=== PATIENT | male | born 1935 | race African-American/Black ===

== ENCOUNTER 2017-02-22 18:00 | Emergency (ER) | payer MEDICARE, OTHER ==
[~2017-02-22] VITALS: Ht 172.7 cm; Wt 85.0 kg
[2017-02-22 18:14] VITALS: BP 96/51; PULSE 74; RESP 18; TEMP 98.4; O2SAT 97; O2SAT 99
[2017-02-22] MEDS ORDERED: SODIUM CHLORIDE 0.9% FLUSH 10 ML FLUSH IVF PRN (18:15)
--- NOTE | 2017-02-22 18:24 | PD ---
HPI . Blurred vision Chief Complaint: Cardiac Complaint Time Seen by Provider: 18:08 Travel History International Travel<30 days: No Contact w/Intl Traveler<30days: No History of Present Illness HPI This patient presents to us via [facility] with the chief complaint to me of blurred vision. The patient was attending a [employer] game. He states that his see his seat was very high up and he developed profound weakness, diaphoresis and blurred vision before he reached his seat. He states that he stepped there during the entire first quarter hoping that things would approve. They did not. He subsequently descended to ground-level and saw the medics who were working the game. They assessed him and found him to be in AF with RVR. They attempted IV access multiple times without success. They subsequently cardioverted him. The patient had immediate relief of his weakness and diaphoresis. The patient denies any chest pain or palpitations. He denies any previous similar history. He states that he does have coronary artery disease since is status post stent placement in July. That was done at [facility]. The patient's weakness and diaphoresis were reportedly profound. There were no modifying factors. The symptoms lasted for 30-45 minutes (length of time needed to play a quarter of football). [facility] Social History Tobacco Use: No Allergies-Medications (Allergen,Severity, Reaction): Coded Allergies: Penicillins (Verified Allergy, Unknown, 02/22/17) Reported Meds & Prescriptions Reported Meds & Active Scripts Active Reported Effient (Prasugrel) 10 Mg Tab 10 Mg PO DAILY Warfarin 5 Mg Tab 5 Mg PO DAILY Coreg (Carvedilol) 6.25 Mg Tab 6.25 Mg PO TID Colchicine 0.6 Mg Cap 0.6 Mg PO DAILY Metformin (Metformin HCl) 500 Mg Tab 500 Mg PO BID With meals Invokana (Canagliflozin) 100 Mg Tab 100 Mg PO DAILY Take before 1st meal of day. Tamsulosin (Tamsulosin HCl) 0.4 Mg Cap 0.4 Mg PO HS Niaspan (Niacin) 500 Mg Tab 500 Mg PO BID Glipizide 5 Mg Tab 10 Mg PO BID Take 30 minutes before a meal Lisinopril 20 Mg Tab 20 Mg PO DAILY Hydrochlorothiazide 25 Mg Tab 25 Mg PO BID Amlodipine (Amlodipine Besylate) 10 Mg Tab 10 Mg PO DAILY Atorvastatin (Atorvastatin Calcium) 20 Mg Tab 20 Mg PO BID Review of Systems Except as stated in HPI: all other systems reviewed are Neg General / Constitutional: Positive: Other (diaphoresis) Eyes: Positive: Blurred Vision Cardiovascular: No: Chest Pain or Discomfort, Palpitations Respiratory: No: Shortness of Breath Physical Exam Narrative GENERAL: Very pleasant man who is currently awake and alert and fully oriented. SKIN: warm/dry. HEAD: Normocephalic. Atraumatic. EYES: Pupils equal and round. No scleral icterus. No injection or drainage. ENT: No nasal bleeding or discharge. Mucous membranes pink and moist. NECK: Trachea midline. Full range of motion without pain.. CARDIOVASCULAR: Regular rate and rhythm. Heart sounds are normal. RESPIRATORY: No accessory muscle use. Clear to auscultation. Breath sounds equal bilaterally. GASTROINTESTINAL: Abdomen soft. Nontender. Bowel sounds present. Nondistended. MUSCULOSKELETAL: No obvious deformities. No edema. NEUROLOGICAL: Awake and alert. No obvious cranial nerve deficits. Motor grossly within normal limits. Normal speech. PSYCHIATRIC: Appropriate mood and affect; insight and judgment normal. Data Data Last Documented VS Vital Signs Date Time Temp Pulse Resp B/P (MAP) Pulse Ox O2 Delivery O2 Flow Rate FiO2 02/22/17 18:18 18 98 Room Air 02/22/17 18:14 98.4 74 96/51 (66) Orders Orders Electrocardiogram (02/22/17 18:08) Basic Metabolic Panel (Bmp) (02/22/17 18:08) Ckmb (Isoenzyme) Profile (02/22/17 18:08) Complete Blood Count With Diff (02/22/17 18:08) Magnesium (Mg) (02/22/17 18:08) Prothrombin Time / Inr (Pt) (02/22/17 18:08) Act Partial Throm Time (Ptt) (02/22/17 18:08) Troponin I (02/22/17 18:08) Chest, Single Ap (02/22/17 18:08) Ecg Monitoring (02/22/17 18:08) Iv Access Insert/Monitor (02/22/17 18:08) Oximetry (02/22/17 18:08) Sodium Chloride 0.9% Flush (Ns Flush) (02/22/17 18:15) Labs Laboratory Tests Test 02/22/17 18:24 White Blood Count 7.4 TH/MM3 Red Blood Count 4.15 MIL/MM3 Hemoglobin 13.6 GM/DL Hematocrit 40.0 % Mean Corpuscular Volume 96.2 FL Mean Corpuscular Hemoglobin 32.6 PG Mean Corpuscular Hemoglobin Concent 33.9 % Red Cell Distribution Width 13.9 % Platelet Count 162 TH/MM3 Mean Platelet Volume 7.6 FL Neutrophils (%) (Auto) 64.1 % Lymphocytes (%) (Auto) 27.3 % Monocytes (%) (Auto) 5.6 % Eosinophils (%) (Auto) 2.5 % Basophils (%) (Auto) 0.5 % Neutrophils # (Auto) 4.8 TH/MM3 Lymphocytes # (Auto) 2.0 TH/MM3 Monocytes # (Auto) 0.4 TH/MM3 Eosinophils # (Auto) 0.2 TH/MM3 Basophils # (Auto) 0.0 TH/MM3 CBC Comment DIFF FINAL Differential Comment MDM Medical Decision Making Medical Screen Exam Complete: Yes Emergency Medical Condition: Yes Medical Record Reviewed: Yes Interpretation(s) EKG shows a sinus rhythm with no acute ischemic changes. Differential Diagnosis Differential diagnosis of tachycardia includes but is not limited to PSVT, atrial fibrillation with a rapid ventricular response, sinus tachycardia (due to hypovolemia, anemia, thyrotoxicosis, PE) Narrative Course This patient presents status post cardioversion per EMS for unstable SVT. Medics report immediate improvement in patient's symptoms with cardioversion. The patient currently has no complaints. His care is being turned over to Dr. England pending workup. Diagnosis Primary Impression: Supraventricular tachycardia Condition: Stable Yadira Fontana MD Feb 22, 2017 18:23
[2017-02-22 18:37] LABS: AUTOMATED NEUTROPHIL # 4.8 TH/MM3 (1.8-7.7); BASOPHIL % 0.5 % (0.0-2.0); EOSINOPHIL # 0.2 TH/MM3 (0-0.4); EOSINOPHIL % 2.5 % (0.0-4.0); HEMO FLAGS DIFF FINAL; LYMPH % 27.3 % (9.0-44.0); MEAN CELL VOLUME 96.2 FL (80.0-100.0); MEAN CORPUSCULAR HEMOGLOBIN 32.6 PG (27.0-34.0); MEAN CORPUSCULAR HGB CONC 33.9 % (32.0-36.0); MONO % 5.6 % (0.0-8.0); NEUT % 64.1 % (16.0-70.0); PLATELET COUNT 162 TH/MM3 (150-450); RED BLOOD COUNT 4.15 MIL/MM3 (4.50-5.90); RED CELL DISTRIBUTION WIDTH 13.9 % (11.6-17.2); WHITE BLOOD COUNT 7.4 TH/MM3 (4.0-11.0)
[2017-02-22] MEDS ORDERED: PRAS10TA PO (18:45)
[2017-02-22] MEDS ORDERED: AMLO10TA2 PO (18:45)
[2017-02-22] MEDS ORDERED: COLC1CAP3 PO (18:45)
[2017-02-22] MEDS ORDERED: METF500T PO (18:45)
[2017-02-22] MEDS ORDERED: NIAC500 PO (18:45)
[2017-02-22] MEDS ORDERED: TAMS0.4C4 PO (18:45)
[2017-02-22] MEDS ORDERED: HYDR25TA5 PO (18:45)
[2017-02-22] MEDS ORDERED: ATOR20TA15 PO (18:45)
[2017-02-22] MEDS ORDERED: CANA100T PO (18:45)
[2017-02-22] MEDS ORDERED: CARV6.25 PO (18:45)
[2017-02-22] MEDS ORDERED: WARF-23 PO (18:45)
[2017-02-22] MEDS ORDERED: LISI-515 PO (18:45)
[2017-02-22] MEDS ORDERED: GLIP5TAB8 PO (18:45)
--- NOTE | 2017-02-22 19:03 | RADRPT ---
EXAM DATE/TIME: 02/22/2017 18:36 [facility] COMPARISON: No previous studies available for comparison. INDICATIONS : Dizziness and weakness. MEDICAL HISTORY : None. SURGICAL HISTORY : None. ENCOUNTER: Initial ACUITY: 1 day PAIN SCORE: 0/10 LOCATION: chest FINDINGS: A single view of the chest demonstrates the lungs to be symmetrically aerated without evidence of mas s, infiltrate or effusion. The cardiomediastinal contours are unremarkable. Osseous structures are intact. CONCLUSION: The lungs are clear. Dedrick Castillo MD on February 22, 2017 at 19:01 Board Certified Radiologist. This report was verified electronically.
[2017-02-22 19:16] LABS: ANION GAP 14 MEQ/L (5-15); BICARBONATE 20.4 MEQ/L (21.0-32.0); BLOOD UREA NITROGEN 25 MG/DL (7-18); CHLORIDE 106 MEQ/L (98-107); GLOMERULAR FILTRATION RATE 39 ML/MIN (>89); MAGNESIUM 1.5 MG/DL (1.5-2.5); POTASSIUM 4.6 MEQ/L (3.5-5.1); SODIUM (NA) 140 MEQ/L (136-145)
[2017-02-22 19:20] LABS: CREATINE KINASE 190 U/L (39-308)
[2017-02-22 20:06] LABS: APTT (PATIENT) 23.1 SEC (24.3-30.1); INTERNATIONAL NORMALIZED RATIO 2.1 RATIO; PROTHROMBIN TIME - PATIENT 23.7 SEC (9.8-11.6)
--- NOTE | 2017-02-22 20:33 | PD ---
Data Data Last Documented VS Vital Signs Date Time Temp Pulse Resp B/P (MAP) Pulse Ox O2 Delivery O2 Flow Rate FiO2 02/22/17 19:49 Room Air 02/22/17 19:49 02/22/17 18:18 18 98 02/22/17 18:14 98.4 74 Orders Orders Electrocardiogram (02/22/17 18:08) Basic Metabolic Panel (Bmp) (02/22/17 18:08) Ckmb (Isoenzyme) Profile (02/22/17 18:08) Complete Blood Count With Diff (02/22/17 18:08) Magnesium (Mg) (02/22/17 18:08) Prothrombin Time / Inr (Pt) (02/22/17 18:08) Act Partial Throm Time (Ptt) (02/22/17 18:08) Troponin I (02/22/17 18:08) Chest, Single Ap (02/22/17 18:08) Ecg Monitoring (02/22/17 18:08) Iv Access Insert/Monitor (02/22/17 18:08) Oximetry (02/22/17 18:08) Sodium Chloride 0.9% Flush (Ns Flush) (02/22/17 18:15) CKMB (02/22/17 18:24) CKMB% (02/22/17 18:24) Labs Laboratory Tests Test 02/22/17 18:24 02/22/17 19:34 White Blood Count 7.4 TH/MM3 Red Blood Count 4.15 MIL/MM3 Hemoglobin 13.6 GM/DL Hematocrit 40.0 % Mean Corpuscular Volume 96.2 FL Mean Corpuscular Hemoglobin 32.6 PG Mean Corpuscular Hemoglobin Concent 33.9 % Red Cell Distribution Width 13.9 % Platelet Count 162 TH/MM3 Mean Platelet Volume 7.6 FL Neutrophils (%) (Auto) 64.1 % Lymphocytes (%) (Auto) 27.3 % Monocytes (%) (Auto) 5.6 % Eosinophils (%) (Auto) 2.5 % Basophils (%) (Auto) 0.5 % Neutrophils # (Auto) 4.8 TH/MM3 Lymphocytes # (Auto) 2.0 TH/MM3 Monocytes # (Auto) 0.4 TH/MM3 Eosinophils # (Auto) 0.2 TH/MM3 Basophils # (Auto) 0.0 TH/MM3 CBC Comment DIFF FINAL Differential Comment Blood Urea Nitrogen 25 MG/DL Creatinine 2.01 MG/DL Random Glucose 225 MG/DL Calcium Level 9.3 MG/DL Magnesium Level 1.5 MG/DL Sodium Level 140 MEQ/L Potassium Level 4.6 MEQ/L Chloride Level 106 MEQ/L Carbon Dioxide Level 20.4 MEQ/L Anion Gap 14 MEQ/L Estimat Glomerular Filtration Rate 39 ML/MIN Total Creatine Kinase 190 U/L Creatine Kinase MB 2.0 NG/ML Troponin I LESS THAN 0.02 NG/ML Prothrombin Time 23.7 SEC Prothromb Time International Ratio 2.1 RATIO Activated Partial Thromboplast Time 23.1 SEC MDM Supervised Visit with [facility]MAN: Yes Narrative Course Today 1-year-old man who presents emergency department for evaluation following a narrow complex regular tachycardia arrhythmia treated on scene with cardioversion. He reportedly has had trouble with this in the past. He initially carries a diltiazem 30 mg pill and a pocket as recommended by his private investigator. [employer] is in [facility]. He is asymptomatic and looks well now. BUN and creatinine is a little bit elevated. No baseline. Is on warfarin. INR is 2.1. Recommend follow-up with her private investigator on Friday. Diagnosis Primary Impression: Supraventricular tachycardia Additional Instruction: Continue current medications. Return immediately to the emergency department call 911 for any recurrent symptoms. Follow-up with your private investigator on Friday. Disposition: 01 DISCHARGE HOME Condition: Stable Wan England MD Feb 22, 2017 20:33
--- NOTE | 2017-02-23 01:12 | EKG ---
Date Performed: 02/22/2017 Time Performed: 18:12:57 PTAGE: 81 years EKG: Sinus rhythm POSSIBLE SEPTAL MYOCARDIAL INFARCTION ABNORMAL ECG NO PREVIOUS TRACING DOCTOR: Walter Cheng Interpretating Date/Time 02/23/2017 01:12:25
== END 2017-02-22 20:53 | disposition home or self-care (01) ==
LOC: NEPC 18:00
DX: I47.1 Supraventricular tachycardia (principal); H53.8 Other visual disturbances; R53.1 Weakness; R61 Generalized hyperhidrosis; R94.31 Abnormal electrocardiogram [ECG] [EKG]; I25.10 Atherosclerotic heart disease of native coronary artery without angina pectoris; Z79.01 Long term (current) use of anticoagulants; Z79.899 Other long term (current) drug therapy; Z88.0 Allergy status to penicillin
CPT/HCPCS: 71010; 80048; 82550; 82552; 83735; 84484; 85025; 85610; 85730; 93005; 99285